=== PATIENT | male | born 1985 | race Hispanic/Latino ===

== ENCOUNTER 2018-10-01 09:47 | Emergency (ER) | payer SELFPAY ==
[2018-10-01 10:41] LABS: Urine Blood NEGATIVE (NEG); Urine Glucose NEGATIVE (NEG); Urine Protein TRACE (NEG)
[2018-10-01 11:05] LABS: ALT/SGPT 44 U/L (12-78); AST/SGOT 26 U/L (15-37); Albumin 4.1 g/dL (3.4-5.0); Alkaline Phosphatase 73 U/L (45-117); BUN Blood Urea Nitrogen 13 mg/dL (7-18); Bicarbonate 29 mmol/L (21-32); Bilirubin Direct 0.1 mg/dL (0-0.2); Bilirubin Total 0.4 mg/dL (0.2-1.0); Glucose Level 108 mg/dL (74-106); Lipase 306 U/L (73-393); Protein, Total 7.5 g/dL (6.4-8.2); Sodium Level 140 mmol/L (136-145)
[2018-10-01 11:06] LABS: Absolute Lymphocytes (CBC) 1.4 K/uL (0.7-4.9); Absolute Monocytes 0.5 K/uL (0.1-1.3); Absolute Neutrophil 5.2 K/uL (1.8-8.0); Basophils % 0.5 % (0-1.3); Eosinophils % 1.5 % (0-4.4); Hematocrit 45.5 % (39.6-49.0); Lymphocytes % 19.2 % (15.3-44.8); Monocytes % 7.2 % (3.3-12.3); RBC Red Blood Cell Count 5.41 M/uL (4.33-5.43)
--- NOTE | 2018-10-01 11:28 | RAD REPORT ---
EXAM DESCRIPTION: CTAbdomen Pelvis W Contrast - 10/01/2018 11:20 am CLINICAL HISTORY: Abdominal pain. RUQ/Flank pain. No ORAL contrast COMPARISON: No comparisons TECHNIQUE: Biphasic CT imaging of the abdomen and pelvis was performed with 100 ml non-ionic IV cont rast. All CT scans are performed using dose optimization technique as appropriate and may include automated exposure control or mA/KV adjustment according to patient size. FINDINGS: The lung bases are clear.Cholelithiasis. The liver, spleen, pancreas, adrenal glands and kidneys are within normal limits. No bowel obstruction, free air, free fluid or abscess. The appendix is normal. No evidence of signi ficant lymphadenopathy. No suspicious bony findings. IMPRESSION: Cholelithiasis.
--- NOTE | 2018-10-01 11:42 | EDPHYS ---
Physician Documentation [facility] Name: Francisco Douglas Jr Age: 33 yrs Sex: Male : 1985 Arrival Date: 10/01/2018 Time: 09:50 Bed 16 Private MD: ED Physician Ino Peguero HPI: 10/01 10:07 This 33 yrs old Male presents to ER via Ambulatory with complaints of Flank ps1 Pain. 10:07 patient states that he woke up with right flank/RUQ pain that started this morning. ps1 States that he ate some fried shrimp last night. Non-radiating pain. No fever. Rated as moderate. No nausea and vomting. . Historical: - Allergies: 09:53 No Known Allergies; tw2 - Home Meds: 09:53 None [Active]; tw2 - PMHx: 09:53 None; tw2 - PSHx: 09:53 None; tw2 - Immunization history:: Adult Immunizations. - Social history:: Smoking status: . - Ebola Screening: : Patient denies travel to an Ebola-affected area in the 21 days before illness onset. ROS: 10:07 Constitutional: Negative for fever, chills, and weight loss, Eyes: Negative for injury, ps1 pain, redness, and discharge, Cardiovascular: Negative for chest pain, palpitations, and edema, Respiratory: Negative for shortness of breath, cough, wheezing, and pleuritic chest pain, Back: Negative for injury and pain, MS/Extremity: Negative for injury and deformity, Skin: Negative for injury, rash, and discoloration, Neuro: Negative for headache, weakness, numbness, tingling, and seizure. 10:07 Abdomen/GI: Positive for abdominal pain. Exam: 10:07 Constitutional: This is a well developed, well nourished patient who is awake, alert, ps1 and in no acute distress. Head/Face: Normocephalic, atraumatic. Eyes: Pupils equal round and reactive to light, extra-ocular motions intact. Lids and lashes normal. Conjunctiva and sclera are non-icteric and not injected. Chest/axilla: Normal chest wall appearance and motion. Nontender with no deformity. No lesions are appreciated. Cardiovascular: Regular rate and rhythm. No gallops, murmurs, or rubs. Normal PMI, no JVD. No pulse deficits. Respiratory: Lungs have equal breath sounds bilaterally, clear to auscultation and percussion. No rales, rhonchi or wheezes noted. No increased work of breathing, no retractions or nasal flaring. 10:07 Abdomen/GI: Inspection: abdomen appears normal, Bowel sounds: normal, Palpation: abdomen is soft and non-tender, mild abdominal tenderness, in the right upper quadrant, Indicators: Fuentes's sign is negative. Vital Signs: 09:53 BP 133 / 91; Pulse 67; Resp 18; Temp 97.7(O); Pulse Ox 100% on R/A; Weight 104.33 kg tw2 (R); Height 5 ft. 7 in. (170.18 cm); Pain 9/10; 11:34 BP 133 / 92; Pulse 68; Resp 16; Pulse Ox 100% ; bp 09:53 Body Mass Index 36.02 (104.33 kg, 170.18 cm) tw2 MDM: 09:59 Patient medically screened. ps1 10/01 09:59 Order name: Basic Metabolic Panel; Complete Time: 11:22 ps1 10/01 09:59 Order name: CBC with Diff; Complete Time: 11:22 ps1 10/01 09:59 Order name: Creatinine for Radiology; Complete Time: 11:22 ps1 10/01 09:59 Order name: Hepatic Function; Complete Time: 11:22 ps1 10/01 09:59 Order name: Lipase; Complete Time: 11:22 ps1 10/01 10:27 Order name: Urine Dipstick--Ancillary (enter results); Complete Time: 10:45 bd 10/01 09:59 Order name: IV Saline Lock; Complete Time: 10:43 ps1 10/01 09:59 Order name: Labs collected and sent; Complete Time: 10:44 ps1 10/01 09:59 Order name: CT Abd/Pelvis - W/Contrast; Complete Time: 11:41 ps1 10/01 10:13 Order name: Urine Dipstick-Ancillary (obtain specimen); Complete Time: 10:43 bp Administered Medications: No medications were administered Disposition: 10/01/18 11:42 Discharged to Home. Impression: Cholelithiasis. - Condition is Stable. - Discharge Instructions: Cholelithiasis. - Medication Reconciliation Form, Thank You Letter, Antibiotic Education, Prescription Opioid Use form. - Follow up: Eliecer Dowell MD; When: As needed; Reason: Further diagnostic work-up, Continuance of care. - Problem is new. - Symptoms have improved. Signatures: Dispatcher [employer] Sapphire Luna, RN RN tw2 Russel Quinn, RN RN bp Ino Peguero MD MD ps1 Corrections: (The following items were deleted from the chart) 12:05 11:42 10/01/2018 11:42 Discharged to Home. Impression: Cholelithiasis. Condition is bp Stable. Forms are Medication Reconciliation Form, Thank You Letter, Antibiotic Education, Prescription Opioid Use. Follow up: Eliecer Dowell; When: As needed; Reason: Further diagnostic work-up, Continuance of care. Problem is new. Symptoms have improved. ps1
--- NOTE | 2018-10-01 11:42 | ER ---
Nurse's Notes [facility] Name: Francisco Dogulas Jr Age: 33 yrs Sex: Male : 1985 Arrival Date: 10/01/2018 Time: 09:50 Bed 16 Private MD: Diagnosis: Cholelithiasis Presentation: 10/01 09:52 Presenting complaint: Patient states: this morning my right side of my stomach started tw2 hurting and i feel like i am going to throw. Transition of care: patient was not received from another setting of care. Onset of symptoms was October 01, 2018. Risk Assessment: Do you want to hurt yourself or someone else? Patient reports no desire to harm self or others. Initial Sepsis Screen: Does the patient meet any 2 criteria? No. Patient's initial sepsis screen is negative. Does the patient have a suspected source of infection? No. Patient's initial sepsis screen is negative. Care prior to arrival: None. 09:52 Method Of Arrival: Ambulatory tw2 09:52 Acuity: QUANG 3 tw2 Triage Assessment: 09:53 General: Appears in no apparent distress. Behavior is calm. Pain: Complains of pain in tw2 right upper quadrant and right lower quadrant. Historical: - Allergies: 09:53 No Known Allergies; tw2 - Home Meds: 09:53 None [Active]; tw2 - PMHx: 09:53 None; tw2 - PSHx: 09:53 None; tw2 - Immunization history:: Adult Immunizations. - Social history:: Smoking status: . - Ebola Screening: : Patient denies travel to an Ebola-affected area in the 21 days before illness onset. Screenin:12 Abuse screen: Denies threats or abuse. Denies injuries from another. Nutritional bp screening: No deficits noted. Tuberculosis screening: No symptoms or risk factors identified. Fall Risk None identified. Assessment: 10:00 General: Appears in no apparent distress. comfortable, Behavior is calm, cooperative, bp appropriate for age. Pain: Complains of pain in right lower quadrant and right upper quadrant. Neuro: Level of Consciousness is awake, alert, obeys commands, Oriented to person, place, time, situation, Appropriate for age. Cardiovascular: No deficits noted. Respiratory: Airway is patent Respiratory effort is even, unlabored, Respiratory pattern is regular, symmetrical. GI: No signs and/or symptoms were reported involving the gastrointestinal system. : Reports pain flank(s). EENT: No deficits noted. Derm: No deficits noted. Musculoskeletal: Circulation, motion, and sensation intact. Range of motion: intact in all extremities. 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 bp 11:34 Reassessment: ALL CURRENT ORDERS COMPLETED, DISPO PENDING. bp 12:02 Reassessment: PT D/C HOME AMBULATORY, DX WITH CHOLELITHIASIS. bp Vital Signs: 09:53 BP 133 / 91; Pulse 67; Resp 18; Temp 97.7(O); Pulse Ox 100% on R/A; Weight 104.33 kg tw2 (R); Height 5 ft. 7 in. (170.18 cm); Pain 9/10; 11:34 BP 133 / 92; Pulse 68; Resp 16; Pulse Ox 100% ; bp 09:53 Body Mass Index 36.02 (104.33 kg, 170.18 cm) tw2 ED Course: 09:50 Patient arrived in ED. rg4 09:52 Triage completed. tw2 09:52 Arm band placed on. tw2 09:54 Ino Peguero MD is Attending Physician. ps1 09:54 Russel Quinn, MIGUE is Primary Nurse. bp 10:20 Inserted saline lock: 20 gauge in left antecubital area, using aseptic technique. bp 11:12 Patient has correct armband on for positive identification. Bed in low position. Call bp light in reach. Side rails up X2. 11:20 CT completed. Patient tolerated procedure well. Patient moved to CT via wheelchair. Patient moved back from CT. 11:25 CT Abd/Pelvis - W/Contrast In Process Unspecified. EDMS 11:41 Eliecer Dowell MD is Referral Physician. ps1 12:03 No provider procedures requiring assistance completed. IV discontinued, intact, bp bleeding controlled, No redness/swelling at site. Pressure dressing applied. Administered Medications: No medications were administered Outcome: 11:42 Discharge ordered by . ps1 12:04 Discharged to home ambulatory. bp 12:04 Condition: stable 12:04 Discharge instructions given to patient, Instructed on discharge instructions, follow up and referral plans. Demonstrated understanding of instructions, follow-up care. 12:05 Patient left the ED. bp Signatures: Dispatcher [employer] Margret Faye Tara, RN RN tw2 Suni Mark rg4 Russel Quinn RN RN bp Ino Peguero MD MD ps1
== END 2018-10-01 12:05 | disposition home or self-care (01) ==
LOC: ER 09:47
DX: K80.20 Calculus of gallbladder without cholecystitis without obstruction (principal)
CPT/HCPCS: 36415; 74177; 80048; 80076; 81003; 83690; 85025; 99284; Q9967

== ENCOUNTER 2019-06-29 00:32 | Emergency (ER) | payer SELFPAY ==
[2019-06-29] MEDS ORDERED: KETOROLAC 30 MG/ML INJ ONE (01:00)
[2019-06-29] MEDS ORDERED: NA CHLORIDE 0.9% 1,000 ML ONE (01:01)
[2019-06-29 01:09] LABS: Absolute Lymphocytes (CBC) 3.8 K/uL (0.7-4.9); Basophils % 0.8 % (0-1.3); Hematocrit 43.9 % (39.6-49.0); Lymphocytes % 49.3 % (15.3-44.8); MPV 8.7 fL (7.6-11.3); RBC Red Blood Cell Count 5.14 M/uL (4.33-5.43)
[2019-06-29 01:26] LABS: Albumin 3.8 g/dL (3.4-5.0); Bilirubin Direct 0.1 mg/dL (0-0.2); Bilirubin Total 0.2 mg/dL (0.2-1.0); Potassium 3.6 mmol/L (3.5-5.1); Protein, Total 6.9 g/dL (6.4-8.2)
[2019-06-29] MEDS ORDERED: FENTANYL CITR 100 MCG/2 ML ONE (01:33)
--- NOTE | 2019-06-29 02:56 | EDPHYS ---
Physician Documentation [facility] Name: Francisco Douglas Jr Age: 34 yrs Sex: Male : 1985 Arrival Date: 06/29/2019 Time: 00:36 Bed 19 Private MD: ED Physician Charbel Humphreys HPI: 06/29 01:01 This 34 yrs old Male presents to ER via Ambulatory with complaints of snw Abdominal Pain. 01:01 The patient presents with abdominal pain in the epigastric area, in the right upper snw quadrant. Onset: The symptoms/episode began/occurred suddenly, last night, at 19:00. Associated signs and symptoms: Pertinent positives: nausea. The symptoms are described as constant. Severity of pain: At its worst the pain was moderate severe. The patient has experienced a previous episode, approximately 9 months ago. The patient has not recently seen a physician. dx with Cholelithiasis 09/30. Historical: - Allergies: 00:49 No Known Allergies; wh - Home Meds: 00:49 None [Active]; - PMHx: 00:49 None; - PSHx: 00:49 None; - Immunization history:: Adult Immunizations not up to date. - Social history:: Smoking status: Patient/guardian denies using tobacco. - Ebola Screening: : Patient negative for fever greater than or equal to 101.5 degrees Fahrenheit, and additional compatible Ebola Virus Disease symptoms Patient denies exposure to infectious person. ROS: 01:00 Constitutional: Negative for fever, chills, and weight loss, Eyes: Negative for injury, snw pain, redness, and discharge, ENT: Negative for injury, pain, and discharge, Neck: Negative for injury, pain, and swelling, Cardiovascular: Negative for chest pain, palpitations, and edema, Respiratory: Negative for shortness of breath, cough, wheezing, and pleuritic chest pain, Back: Negative for injury and pain, : Negative for injury, bleeding, discharge, and swelling, MS/Extremity: Negative for injury and deformity, Skin: Negative for injury, rash, and discoloration, Neuro: Negative for headache, weakness, numbness, tingling, and seizure, Psych: Negative for depression, anxiety, suicide ideation, homicidal ideation, and hallucinations. 01:00 Abdomen/GI: Positive for abdominal pain, nausea. Exam: 01:00 Constitutional: This is a well developed, well nourished patient who is awake, alert, snw and in no acute distress. Head/Face: Normocephalic, atraumatic. Eyes: Pupils equal round and reactive to light, extra-ocular motions intact. Lids and lashes normal. Conjunctiva and sclera are non-icteric and not injected. Cornea within normal limits. Periorbital areas with no swelling, redness, or edema. ENT: Nares patent. No nasal discharge, no septal abnormalities noted. Tympanic membranes are normal and external auditory canals are clear. Oropharynx with no redness, swelling, or masses, exudates, or evidence of obstruction, uvula midline. Mucous membranes moist. Neck: Trachea midline, no thyromegaly or masses palpated, and no cervical lymphadenopathy. Supple, full range of motion without nuchal rigidity, or vertebral point tenderness. No Meningismus. Chest/axilla: Normal chest wall appearance and motion. Nontender with no deformity. No lesions are appreciated. Cardiovascular: Regular rate and rhythm with a normal S1 and S2. No gallops, murmurs, or rubs. Normal PMI, no JVD. No pulse deficits. Respiratory: Lungs have equal breath sounds bilaterally, clear to auscultation and percussion. No rales, rhonchi or wheezes noted. No increased work of breathing, no retractions or nasal flaring. Back: No spinal tenderness. No costovertebral tenderness. Full range of motion. Skin: Warm, dry with normal turgor. Normal color with no rashes, no lesions, and no evidence of cellulitis. MS/ Extremity: Pulses equal, no cyanosis. Neurovascular intact. Full, normal range of motion. Neuro: Awake and alert, GCS 15, oriented to person, place, time, and situation. Cranial nerves II-XII grossly intact. Motor strength 5/5 in all extremities. Sensory grossly intact. Cerebellar exam normal. Normal gait. Psych: Awake, alert, with orientation to person, place and time. Behavior, mood, and affect are within normal limits. 01:00 Abdomen/GI: Inspection: abdomen appears normal, Bowel sounds: diminished, in all quadrants, Palpation: moderate abdominal tenderness, in the right upper quadrant, Indicators: Fuentes's sign is positive. Vital Signs: 00:47 BP 131 / 88; Pulse 60; Resp 18; Temp 97.6; Pulse Ox 100% ; Weight 90.72 kg; Height 5 wh ft. 7 in. (170.18 cm); 00:47 Body Mass Index 31.32 (90.72 kg, 170.18 cm) MDM: 00:47 Patient medically screened. snw 03:06 Data reviewed: vital signs, nurses notes. Data interpreted: Pulse oximetry: on room air snw is 100 %. Interpretation: normal. Counseling: I had a detailed discussion with the patient and/or guardian regarding: the historical points, exam findings, and any diagnostic results supporting the discharge/admit diagnosis, the presence of at least one elevated blood pressure reading (>120/80) during this emergency department visit, lab results, the need for outpatient follow up, to return to the emergency department if symptoms worsen or persist or if there are any questions or concerns that arise at home. Special discussion: Based on the patient's Hx, exam, and Dx evaluation, there is no indication for emergent surgery or inpatient Tx. It is understood by the patient/guardian that if the Sx's persist or worsen they need to return immediately for re-evaluation. Based on the history and exam findings, there is no indication for further emergent testing or inpatient evaluation. I discussed with the patient/guardian the need to see the general surgeon for further evaluation of the symptoms. I discussed with the patient/guardian the need to see the primary care provider for further evaluation of the symptoms. 06/29 00:46 Order name: Basic Metabolic Panel; Complete Time: 06/29 00:46 Order name: CBC with Diff; Complete Time: 06/29 00:46 Order name: Creatinine for Radiology; Complete Time: 06/29 00:46 Order name: Hepatic Function; Complete Time: 06/29 00:46 Order name: Lipase; Complete Time: 06/29 00:46 Order name: IV Saline Lock; Complete Time: 06/29 00:46 Order name: Labs collected and sent; Complete Time: 01: Administered Medications: 01:01 Drug: NS 0.9% 1000 ml Route: IV; Rate: 125 ml/hr; Site: right antecubital; 04:04 Follow up: Response: No adverse reaction; IV Status: Completed infusion 01:04 Drug: TORadol - Ketorolac 15 mg Route: IVP; Site: right antecubital; 04:04 Follow up: Response: No adverse reaction 01:37 Drug: fentaNYL (PF) 50 mcg Route: IVP; Site: right antecubital; 04:04 Follow up: Response: No adverse reaction; Pain is decreased; RASS: Alert and Calm (0) 03:00 Drug: Simethicone 240 mg Route: PO; 04:04 Follow up: Response: No adverse reaction 03:00 Drug: Bentyl 20 mg Route: PO; 04:04 Follow up: Response: No adverse reaction Disposition: 03:43 Co-signature as Attending Physician, Charbel Humphreys MD. rn Disposition: 06/29/19 02:55 Discharged to Home. Impression: Upper abdominal pain, unspecified. - Condition is Stable. - Discharge Instructions: Abdominal Pain, Adult, Fat and Cholesterol Restricted Diet, Cholelithiasis. - Prescriptions for Bentyl 20 mg Oral Tablet - take 1 tablet by ORAL route every 6 hours As needed; 20 tablet. Tylenol- Codeine #3 300-30 mg Oral Tablet - take 2 tablets by ORAL route every 6 hours As needed; 14 tablet. promethazine 25 mg Oral Tablet - take 1 tablet by ORAL route every 6 hours As needed; 20 tablet. - Work release form, Medication Reconciliation Form, Thank You Letter, Antibiotic Education, Prescription Opioid Use form. - Follow up: Bernard Meredith MD; When: 1 - 2 days; Reason: Recheck today's complaints, Continuance of care. Signatures: Dispatcher [employer] EDNJ Peggy Sidhu, HORTICULTURAL FARM MANAGER-C HORTICULTURAL FARM MANAGER-Csnw Charbel Humphreys MD MD rn [place], Winsy Corrections: (The following items were deleted from the chart) 03:14 02:55 06/29/2019 02:55 Discharged to Home. Impression: Upper abdominal pain, wh unspecified. Condition is Stable. Forms are Medication Reconciliation Form, Thank You Letter, Antibiotic Education, Prescription Opioid Use. Follow up: Bernard Meredith; When: 1 - 2 days; Reason: Recheck today's complaints, Continuance of care. snw
--- NOTE | 2019-06-29 02:56 | ER ---
Nurse's Notes [facility] Name: Francisco Douglas Jr Age: 34 yrs Sex: Male : 1985 Arrival Date: 06/29/2019 Time: 00:36 Bed 19 Private MD: Diagnosis: Upper abdominal pain, unspecified Presentation: 06/29 00:42 Presenting complaint: Patient states: C/O RUQ pain that started a few hours ago after wh having dinner. Transition of care: patient was not received from another setting of care. Onset of symptoms was June 28, 2019. Risk Assessment: Do you want to hurt yourself or someone else? Patient reports no desire to harm self or others. Initial Sepsis Screen: Does the patient meet any 2 criteria? No. Patient's initial sepsis screen is negative. Does the patient have a suspected source of infection? No. Patient's initial sepsis screen is negative. Care prior to arrival: None. 00:42 Method Of Arrival: Ambulatory 00:42 Acuity: QUANG 3 Historical: - Allergies: 00:49 No Known Allergies; - Home Meds: 00:49 None [Active]; - PMHx: 00:49 None; - PSHx: 00:49 None; - Immunization history:: Adult Immunizations not up to date. - Social history:: Smoking status: Patient/guardian denies using tobacco. - Ebola Screening: : Patient negative for fever greater than or equal to 101.5 degrees Fahrenheit, and additional compatible Ebola Virus Disease symptoms Patient denies exposure to infectious person. Screenin:43 Abuse screen: Denies threats or abuse. Denies injuries from another. Nutritional screening: No deficits noted. Tuberculosis screening: No symptoms or risk factors identified. Fall Risk None identified. Assessment: 00:44 General: Appears in no apparent distress. uncomfortable, Behavior is calm, cooperative, wh appropriate for age. Pain: Complains of pain in right upper quadrant Pain radiates to back Pain currently is 10 out of 10 on a pain scale. Quality of pain is described as aching, Pain began 4 hours ago. Neuro: Level of Consciousness is awake, alert, obeys commands, Oriented to person, place, time, situation, Appropriate for age. Cardiovascular: Heart tones S1 S2. Respiratory: Airway is patent Respiratory effort is even, unlabored, Respiratory pattern is regular, symmetrical, Breath sounds are clear bilaterally. GI: Abdomen is flat, non-distended, Bowel sounds present X 4 quads. Abd is soft and non tender X 4 quads. : No signs and/or symptoms were reported regarding the genitourinary system. EENT: No signs and/or symptoms were reported regarding the EENT system. Derm: Skin is intact, is healthy with good turgor, Skin is pink, warm \T\ dry. normal. Musculoskeletal: Circulation, motion, and sensation intact. 02:00 Reassessment: Patient appears in no apparent distress at this time. No changes from previously documented assessment. Patient and/or family updated on plan of care and expected duration. Pain level reassessed. Patient is alert, oriented x 3, equal unlabored respirations, skin warm/dry/pink. 03:05 Reassessment: Patient appears in no apparent distress at this time. No changes from previously documented assessment. Patient and/or family updated on plan of care and expected duration. Pain level reassessed. Patient is alert, oriented x 3, equal unlabored respirations, skin warm/dry/pink. Patient states feeling better. Patient states symptoms have improved. Vital Signs: 00:47 BP 131 / 88; Pulse 60; Resp 18; Temp 97.6; Pulse Ox 100% ; Weight 90.72 kg; Height 5 wh ft. 7 in. (170.18 cm); 00:47 Body Mass Index 31.32 (90.72 kg, 170.18 cm) ED Course: 00:36 Patient arrived in ED. ds1 00:37 Loida Guillen is Primary Nurse. 00:43 Triage completed. wh 00:44 Arm band placed on left wrist. wh 00:44 Patient has correct armband on for positive identification. Placed in gown. Bed in low wh position. Call light in reach. Side rails up X 1. Pulse ox on. NIBP on. 00:45 Peggy Sidhu FNP-C is PHCP. snw 00:46 Charbel Humphreys MD is Attending Physician. snw 00:50 Inserted saline lock: 20 gauge in right antecubital area, using aseptic technique. Blood collected. 02:54 Bernard Meredith MD is Referral Physician. snw 03:10 No provider procedures requiring assistance completed. IV discontinued, intact, wh bleeding controlled, No redness/swelling at site. Administered Medications: 01:01 Drug: NS 0.9% 1000 ml Route: IV; Rate: 125 ml/hr; Site: right antecubital; 04:04 Follow up: Response: No adverse reaction; IV Status: Completed infusion 01:04 Drug: TORadol - Ketorolac 15 mg Route: IVP; Site: right antecubital; 04:04 Follow up: Response: No adverse reaction 01:37 Drug: fentaNYL (PF) 50 mcg Route: IVP; Site: right antecubital; 04:04 Follow up: Response: No adverse reaction; Pain is decreased; RASS: Alert and Calm (0) 03:00 Drug: Simethicone 240 mg Route: PO; 04:04 Follow up: Response: No adverse reaction 03:00 Drug: Bentyl 20 mg Route: PO; 04:04 Follow up: Response: No adverse reaction Outcome: 02:55 Discharge ordered by . presley 03:10 Discharged to home ambulatory, with friend. 03:10 Condition: stable 03:10 Discharge instructions given to patient, Instructed on discharge instructions, follow up and referral plans. no drinking with medication, no driving heavy equipment, medication usage, POC Cholelithiasis Demonstrated understanding of instructions, follow-up care, medications, POC Prescriptions given X 3. 03:14 Patient left the ED. Signatures: Peggy Sidhu, VAN LOADER-C VAN LOADER-Csnw Hellen Garcia ds1 Loida Guillen
[2019-06-29] MEDS ORDERED: DICYCLOMINE HCL 10 MG CAP ONE (03:04)
[2019-06-29] MEDS ORDERED: SIMETHICONE 80 MG TAB ONE (03:04)
[2019-06-29 03:23] VITALS: BP 131/88; TEMP 97.6; O2SAT 100
== END 2019-06-29 03:14 | disposition home or self-care (01) ==
LOC: ER 00:32
DX: R10.11 Right upper quadrant pain (principal)
CPT/HCPCS: 36415; 80048; 80076; 83690; 85025; 96361; 96374; 96375; 99284; J3010; J7030